=== PATIENT | male | born 1960 | race African-American/Black ===

== ENCOUNTER 2025-01-27 10:12 | Outpatient (CLI) | payer MEDICARE, SELFPAY ==
--- NOTE | ~2025-01-27 | XR_ITS ---
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 Findings: No acute fracture or malalignment. Moderate degenerative changes of the distal interphalangeal joints, severe degenerative changes of the visualized carpal joints Soft tissues unremarkable. Impression: No acute fracture or malalignment. Reviewed, dictated and finalized at location P. RVISORY TRAINING SPECIALIST Impression: No acute fracture or malalignment.
--- NOTE | ~2025-01-27 | XR_ITS ---
EXAMINATION: XR wrist RT min 3V, 01/27/2025 10:28 SHIPPING HAND HISTORY: pt states pain to lateral and medial side of wrist x yrs COMPARISON: No comparisons available. Findings: There is a remote appearing fracture of the distal radius which appears corticated, no acute fracture is identified Severe degenerative changes of the carpal joints with narrowing of the joint spaces and osteophytosis. Soft tissues unremarkable. Impression: No acute fracture or malalignment. Reviewed, dictated and finalized at location P. PING HAND Impression: No acute fracture or malalignment.
== END 2025-01-27 10:13 | disposition home or self-care (01) ==
PROVIDERS: PCP Emergency Medicine; Visit Provider Plastic Surgery
DX: M25.531 Pain in right wrist (principal)
CPT/HCPCS: 73110; 73130